=== PATIENT | female | born 1990 | race Caucasian/White ===

== ENCOUNTER 2016-10-13 14:35 | Emergency (ER) | payer MEDICAID ==
[2016-10-13 14:46] VITALS: RESP 16; TEMP 98.6
--- NOTE | 2016-10-13 15:02 | EDPHY ---
H & P Time Seen by Provider: 10/13/16 14:52 HPI/ROS: HPI Urinary discomfort. 26-year-old female by private vehicle. She presents with complaint of burning, increased frequency with urination and some hematuria ongoing for 1-2 days now. She denies any back pain. No fever. No vomiting. Last menstrual period ended 3 days ago. She reports being diagnosed with 1 urinary tract infection in the past. ROS: Constitutional: No fever, no chills. No weakness. Respiratory: No cough. No shortness of breath. Cardiac: No chest pain, no palpitations. Gastrointestinal: No abdominal pain, no vomiting, no diarrhea. Genitourinary: As above. Musculoskeletal: No back pain. No neck pain. No myalgias or arthralgias. Skin: No rashes. Neurological: No headache. No focal weakness or altered sensation. Past medical history: She denies any significant past medical history. She is not on any prescription medications. Social history: Nonsmoker. No alcohol. She is here by herself. Physical Exam: General Appearance: Alert, no distress. This patient is responding to questions appropriately and in full sentences. This patient appears well- hydrated and well-nourished. Gastrointestinal: Abdomen is soft and nontender, no masses, bowel sounds normal. No focal tenderness at McBurney's point. No Daily sign. Neurological: Motor sensory function is grossly intact. Cranial nerves are normal. Gait is normal. Skin: Warm and dry, no rashes. Musculoskeletal: No CVA tenderness bilaterally. Extremities are symmetrical. All joints range without pain or impingement. Psychiatric: No agitation. No depression. Database: EKG: Imaging: Procedures: Emergency department course: Urine specimen sent for urinalysis. Medication history reviewed. No known allergies to medications. 3:45 p.m., patient re-evaluated. Results of urinalysis discussed. Diagnosis of urinary tract infection reviewed. Patient started on Keflex in the emergency department. She was also given Pyridium. She will be prescribed these medications for ongoing treatment over the next few days. She feels comfortable going home. Her vital signs have been reviewed and are normal. Follow-up and return to emergency department precautions discussed. All of her questions were answered. She was discharged in good condition. Differential Diagnosis: The differential diagnosis on this patient includes but is not limited to urinary tract infection. Pyelonephritis, STD, ectopic unlikely. This represents a partial list of diagnoses considered. These considerations are based on history, physical exam, past history, reassessment and diagnostic testing. Smoking Status: Never smoked Constitutional: Initial Vital Signs Temperature (C) 37 C 10/13/16 14:43 Heart Rate 68 10/13/16 14:43 Respiratory Rate 16 10/13/16 14:43 Blood Pressure 119/63 10/13/16 14:43 O2 Sat (%) 98 10/13/16 14:43 O2 Delivery Mode Room Air Allergies/Adverse Reactions: No Known Allergies Allergy (Verified 10/13/16 14:43) Home Medications: Medication Instructions Recorded Cephalexin [Keflex (*)] 500 mg PO Q6 7 Days 10/13/16 Phenazopyridine HCl [Pyridium] 200 mg PO TID #10 tab 10/13/16 Medical Decision Making - Data Points Laboratory Results: 10/13/16 10/13/16 14:45 14:45 Urine Color YELLOW Urine Appearance HAZY Urine pH 6.0 (5.0-7.5) Ur Specific [place] 1.002 (1.002-1.030) Urine Protein 1+ H (NEGATIVE) Urine Ketones NEGATIVE (NEGATIVE) Urine Blood 3+ H (NEGATIVE) Urine Nitrate NEGATIVE (NEGATIVE) Urine Bilirubin NEGATIVE (NEGATIVE) Urine Urobilinogen NEGATIVE EU EU (0.2-1.0) Ur Leukocyte Esterase 3+ H (NEGATIVE) Urine RBC 5-10 /hpf H /hpf (0-3) Urine WBC 15-25 /hpf H /hpf (0-3) Ur Epithelial Cells NONE SEEN /lpf /lpf (NONE-1+) Urine Bacteria 2+ /hpf H /hpf (NONE SEEN) Urine Glucose NEGATIVE (NEGATIVE) Urine Test NEGATIVE Departure - Departure Disposition: Home, Routine, Self-Care Clinical Impression: Urinary tract infection Condition: Good Instructions: Urinary Tract Infection in Women (ED) Additional Instructions: Read and follow provided instructions. Follow-up with your primary care physician in 1-2 days for re-evaluation as needed. Take medication as prescribed through entire course of treatment. Return to the emergency department for worsening symptoms, back pain, vomiting, fever or other serious concerns. Referrals: Noemi Peres MD [Primary Care Provider] - As per Instructions Prescriptions: Cephalexin [Keflex (*)] 500 mg PO Q6 7 Days Phenazopyridine HCl [Pyridium] 200 mg PO TID #10 tab
[2016-10-13 15:21] LABS: COLOR YELLOW; LEUKOCYTE ESTERASE,URINE 3+ (NEGATIVE); NITRITE,URINE NEGATIVE (NEGATIVE)
[2016-10-13 15:34] LABS: BACTERIA 2+ /hpf (NONE SEEN); WBC,URINE 15-25 /hpf (0-3)
[2016-10-13] MEDS ORDERED: PHENAZOPYRIDINE HCL 200 MG TAB PO ONE (15:45)
[2016-10-13] MEDS ORDERED: CEPHALEXIN 500 MG CAP PO ONE (15:45)
[2016-10-13 15:57] VITALS: BP 110/60; PULSE 71; O2SAT 100
== END 2016-10-13 15:57 | disposition home or self-care (01) ==
DX: N39.0 Urinary tract infection, site not specified (principal); B96.20 Unspecified Escherichia coli [E. coli] as the cause of diseases classified elsewhere